=== PATIENT | male | born 1995 | race Caucasian/White ===

== ENCOUNTER → 2020-07-18 | Outpatient (CLI) | payer OTHER | END | disposition home or self-care (01) | LOC: EMS 12:26 | PROVIDERS: ATTEND Internal Medicine | DX: Z20.828 Contact with and (suspected) exposure to other viral communicable diseases (principal) | CPT/HCPCS: 87426 ==

== ENCOUNTER → 2020-07-24 | Outpatient (CLI) | payer OTHER | END | disposition home or self-care (01) | LOC: LABPV 15:41 | DX: Z20.828 Contact with and (suspected) exposure to other viral communicable diseases (principal) | CPT/HCPCS: U0003-CS ==

== ENCOUNTER 2021-05-05 08:26 | Emergency (ER) | payer OTHER ==
[~2021-05-05] VITALS: Ht 188 cm; Wt 65.9 kg
[2021-05-05] MEDS ORDERED: DEXAMETHASONE 4 MG TABLET PO ONE (09:15)
[2021-05-05] MEDS ORDERED: MAALOX/LIDOCAINE/NYSTATIN SUSP 5 ML ORAL.SYG MM ONE (09:15)
[2021-05-05 10:08] VITALS: BP 134/78
== END 2021-05-05 10:25 | disposition home or self-care (01) ==
LOC: EMS 08:39
DX: J02.8 Acute pharyngitis due to other specified organisms (principal); B97.89 Other viral agents as the cause of diseases classified elsewhere
CPT/HCPCS: 87430; 99283; J8540